=== PATIENT | male | born 1975 | race Caucasian/White ===

== ENCOUNTER 2016-11-24 09:49 | Inpatient (IN) | payer MEDICAID | END 2016-11-25 11:00 | disposition left against medical advice (07) | DRG 894 | LOC: P1E 09:49 | PROC: HZ2ZZZZ Detoxification Services for Substance Abuse Treatment (ICD-10-PCS; principal; 2016-11-24) | DX: F11.10 Opioid abuse, uncomplicated (principal); F17.210 Nicotine dependence, cigarettes, uncomplicated ==